=== PATIENT | female | born 1955 | race Caucasian/White ===

== ENCOUNTER 2017-04-29 14:20 | Inpatient (IN) | payer MEDICARE, BC ==
--- NOTE | ~2017-04-29 | HP ---
History And Physical [place] [id number] [facility] [place]. [address] NAME: SHAYY WRIGHT : 51 STATUS : ADM IN [facility]#: [id number] AGE: 61 ADM/REG DATE : 04/30/17 MR#: [id number] REPORT SERV DATE: 04/30/17 DICTATED BY: PAN RODRIGUEZ DATE: 04/30/17 REPORT STATUS : Draft TRANSCRIBED BY: MODL DATE: 04/30/17 DATE OF ADMISSION: 04/30/2017 CHIEF COMPLAINT: Abdominal pain and constipation. HISTORY OF PRESENT ILLNESS: This is a 61-year-old female who has a history of multiple sclerosis, who presents to the Emergency Room at [facility] with the above-mentioned complaint. History is obtained from the patient and reviewing data available on the Real Time Translation System. According to Ms. Wright, she had been in her usual state of health until a few days ago when she had trouble moving her bowels. She thought she was constipated and tried all OTC supplements that she could get. She started having abdominal pain and back pain and this became more intense and she decided to come to the emergency room to be evaluated. She also started having nausea and vomiting in the last 24 to 36 hours. She also admits to having some fever and chills during this time. In the emergency room, initial workup revealed she had a urinary tract infection, but more importantly, a CT scan of her abdomen and pelvis showed moderately severe left-sided hydronephrosis with stone in the ureteropelvic junction measuring 7 mm x 3 mm. The right side had stones as well, but they were nonobstructive. Importantly, there was no bowel obstruction. She had leukocytosis and met criteria for sepsis as well. Hospitalist Service was asked to admit her for further evaluation and treatment. At the time of my evaluation, she unfortunately had been treated with intravenous Dilaudid and was quite somnolent and groggy. However, she was able to answer some questions, but I think she was quite confused. She denied any chest pain, palpitations, or orthopnea. She denied any cough, hemoptysis, night sweats, or weight loss. She has not had any recent falls or loss of consciousness, did have some fever and chills as mentioned above. She did have nausea and vomiting bilious material. No hematemesis, hematochezia, or hematuria. No other history of recent travel or exposures other than those mentioned above. PAST MEDICAL HISTORY: Significant for history of multiple sclerosis. SOCIAL HISTORY: She has a prior history of tobacco use, but has not smoked in years. Does not use alcohol or recreational drugs. She is disabled at this time. FAMILY HISTORY: Noncontributory. MEDICATIONS: At home were reviewed by me in the chart today and reordered by me. REVIEW OF SYSTEMS: As in history of present illness. All other systems were reviewed and are quite unremarkable. PHYSICAL EXAMINATION: History And Physical [address] [address] NAME: SHAYY WRIGHT : 51 STATUS : ADM IN [facility]#: [id number] AGE: 61 ADM/REG DATE : 04/30/17 MR#: [id number] REPORT SERV DATE: 04/30/17 DICTATED BY: PAN RODRIGUEZ DATE: 04/30/17 REPORT STATUS : Draft TRANSCRIBED BY: ESTELA DATE: 04/30/17 GENERAL: This is a pleasant 61-year-old, not in any acute distress. She was alert and awake, but not oriented to time, place, or person. HEENT: Pupils are equal, reacting to light and accommodating. External ocular muscles are intact. NECK: Supple with no jugular venous distention, lymphadenopathy, or thyromegaly. LUNGS: Clear to auscultation with no wheezes, rubs, or crackles. HEART: Heart sounds were regular with no murmurs, rubs, or gallops. ABDOMEN: Distended and soft. There is tenderness to palpation diffusely. There is no rebound or guarding. Bowel sounds were diminished. EXTREMITIES: No cyanosis, clubbing, or edema. NEUROLOGIC: Grossly intact, although she was slightly confused secondary to her medications. She was able to move all four extremities. Speech was clear. She was able to answer some questions. There were no obvious deficits. VITAL SIGNS: Her vital signs today showed a temperature of 99.6 degrees Fahrenheit, pulse 119, respirations were 18 a minute, blood pressure was 155/72 upon arrival. Oxygen saturations were 96% breathing 4 L of oxygen via nasal cannula. LABORATORY DATA: Reviewed on the Real Time Translation System showed a normal CMP with a blood glucose of 109. Her alkaline phosphatase was 106, ALT was 24, AST 44, lipase was 81. Her BNP was 9.6. Lactate was 2.4. CBC showed a white blood cell count of 19,000, normal hemoglobin, hematocrit, and platelet count. Urinalysis showed hazy appearance, protein was 100, large blood greater than 182 rbc's, and occasional bacteria. CT scan of her abdomen and pelvis were reviewed by me on the PACS today. Official Radiology report was also reviewed. There is mcgbhzlt-tv-zuzplf left hydronephrosis with the stone in the ureteropelvic junction measuring 7 x 3 mm. There are nonobstructing stones in the right side as well. There was no bowel obstruction. A 12-lead EKG done in the emergency room was reviewed and interpreted by me. There is sinus tachycardia at a rate of [address] elevations. IMPRESSION: 1. Abdominal pain. 2. Severe hydronephrosis with stone in the ureteropelvic junction with possible obstructive uropathy. 3. Sepsis. 4. Leukocytosis. 5. Multiple sclerosis. PLAN: We will admit Ms. Wright to the Hospitalist Service with telemetry for close monitoring. After cultures are obtained, we will start her on empiric IV antibiotics. Dr. Read wanted gentamicin per the ER physician. We will keep her n.p.o., start her on fluids and pain control. Dr. Read will be consulted. I had spoken with him briefly. Meanwhile, we will place her on SCDs for DVT prophylaxis. We will continue home medications and treatments, but we will keep her n.p.o. for the most part. Please see today's orders for details. Further recommendations will follow after Dr. Read has had a chance to see her. I have discussed above plans with the patient. Questions were answered. She is agreeable to the above recommendations. History And Physical [address] [place]. [address] NAME: SHAYY WRIGHT : 51 STATUS : ADM IN [facility]#: [id number] AGE: 61 ADM/REG DATE : 04/30/17 MR#: [id number] REPORT SERV DATE: 04/30/17 DICTATED BY: PAN RODRIGUEZ DATE: 04/30/17 REPORT STATUS : Draft TRANSCRIBED BY: ESTELA DATE: 04/30/17 MR/MODL Pan Rodriguez M.D. / [id number] CC: Albert Reyna MD
--- NOTE | ~2017-04-29 | OP ---
Record Of Operation [facility] [address] [place]. [address] NAME: SHAYY WRIGHT : 51 STATUS : ADM IN PAT#: [id number] AGE: 61 ADM/REG DATE : 04/30/17 MR#: [id number] REPORT SERV DATE: 04/30/17 DICTATED BY: ERNIE HALE DATE: 04/30/17 REPORT STATUS : Draft TRANSCRIBED BY: MODDina DATE: 04/30/17 DATE OF PROCEDURE: PREOPERATIVE DIAGNOSIS: Left proximal ureteral calculus with obstruction, hydronephrosis, and pyelonephritis, and right renal pelvis calculus. POSTOPERATIVE DIAGNOSIS: Left proximal ureteral calculus with obstruction, hydronephrosis, and pyelonephritis, and right renal pelvis calculus. PROCEDURES: Cystoscopy, bilateral retrograde pyelography, and left ureteral stent placement. SURGEON: Ernie Hale M.D. ANESTHESIA: General. BLOOD LOSS: Less than 5 mL. FLUID REPLACEMENT: None. DRAINS: A 6-Colombian 26 cm double-J left ureteral stent with the strings removed and a 16- Colombian Hale catheter per urethra. INDICATION: Ms. Wright is a 61-year-old white female with multiple sclerosis, who presented to the emergency department with an obstructing stone in the left proximal ureter and a temperature of 99.3. She also has a stone in the right renal pelvis. FINDINGS: Dark urine from the left renal pelvis, right side, appeared to drain without any problem. TECHNIQUE: The patient was identified, brought to the operating room, administered general anesthetic agent by the Anesthesia Service, and intubated. She was positioned in dorsal lithotomy position. Vulva, groin, and introitus were prepped and draped in usual sterile fashion. A 22-Colombian cystoscopic sheath was placed in the bladder with an obturator. The obturator was removed and a 30-degree cystoscopic lens was inserted. The trigone and ureteral orifices are normal. The bladder has some small calcifications on the floor of the bladder. These are irrigated out. I cannulated the left ureteral orifice and performed left retrograde pyelogram. It shows a normal ureter up to the stone just proximal and then hydronephrosis above that. I advanced a 0.35 wire through the open-ended catheter and I passed the stone into the renal pelvis. I advanced the open-ended catheter over the wire into the renal pelvis, removed the wire, and then drained the urine out of the renal pelvis. This was collected and sent for culture. I then back filled it with diluted contrast material, reintroduced the wire through the open- ended catheter, removed the open-ended catheter, and deployed a 6-Colombian 26 cm double-J left ureteral stent. The string and the wire are removed. Record Of Operation [address] [place]. [address] NAME: SHAYY WRIGHT : 51 STATUS : ADM IN PAT#: [id number] AGE: 61 ADM/REG DATE : 04/30/17 MR#: [id number] REPORT SERV DATE: 04/30/17 DICTATED BY: ERNIE HALE DATE: 04/30/17 REPORT STATUS : Draft TRANSCRIBED BY: ESTELA DATE: 04/30/17 I performed a right retrograde pyelogram. It shows a normal course to the right ureter. There is a stone in the right renal pelvis. There is no hydronephrosis. I then watched the right side drain under fluoroscopy. Drains without obstruction. The bladder is then drained. A 16-Colombian Hale catheter is passed in the bladder and the procedure is terminated. PF/ESTELA Ernie Hale M.D. / [id number] CC: Albert Reyna MD
--- NOTE | ~2017-04-29 | DS ---
Discharge Summary [facility] [address] [place]. [address] NAME: SHAYY WRIGHT : 51 STATUS : DIS IN PAT#: [id number] AGE: 61 ADM/REG DATE : 04/30/17 MR#: [id number] REPORT SERV DATE: 05/03/17 DICTATED BY: ALBERT SANTIAGO DATE: 05/02/17 REPORT STATUS : Draft TRANSCRIBED BY: ESTELA DATE: 05/02/17 ADMISSION DATE: 04/30/2017 DISCHARGE DATE: 05/02/2017 DISCHARGE DIAGNOSES: 1. Sepsis. 2. Pyelonephritis. 3. Left hydronephrosis, left nephrolithiasis, status post left ureteral stent placement. 4. Multiple sclerosis. 5. Right renal pelvic calculus. 6. Constipation. 7. Hypothyroidism. 8. History of seizure disorder. CONSULTATIONS: 1. Urology, Dr. Read. 2. Infectious Disease, Dr. Ying. PROCEDURES PERFORMED DURING THIS ADMISSION: Cystoscopy, bilateral retrograde pyelography, and left ureteral stent placement. DISCHARGE CONDITION: Stable. IMAGING: CT scan of abdomen and pelvis, impression: 1. Ntenvjxn-wj-ajonaa left hydronephrosis associated with a 7 x 3 mm left ureteropelvic junction calculus. 2. Nonobstructing right nephrolithiasis. 3. Small bladder calculus. 4. Normal appendix, right upper pelvis. No bowel obstruction pattern. HISTORY OF PRESENT ILLNESS: For detailed HPI, please make reference to Dr. Cosme Perla's dictation on 04/30/2017. In brief, this is a 61-year-old female with medical history significant for multiple sclerosis, who presented to the emergency room at [facility] with complaints of abdominal pain and severe constipation. The patient reported associated nausea and vomiting 24 to 36 hours prior to presentation. She also reported some associated fever and chills during this time. In the ER, vital signs, temperature 99.6, pulse 119, respiratory rate 18, blood pressure 155/72. Physical exam was significant for abdominal distention with severe diffuse tenderness without rebound or guarding. Also noted was mild confusion. She was oriented x2. LABORATORY DATA: Lactate was 2.4 and WBC 19,000. Urinalysis showed hazy appearance with large leukocyte esterase. CT scan of the abdomen showed lbsmhlis-bp-dolopk left hydronephrosis with a stone in the ureteropelvic junction. An assessment of severe sepsis secondary to pyelonephritis (present on admission) severe left hydronephrosis due to obstructing stone in the ureteropelvic junction was made in the Discharge Summary [place] [address] [place]. [address] NAME: SHAYY WRIGHT : 51 STATUS : DIS IN PAT#: [id number] AGE: 61 ADM/REG DATE : 04/30/17 MR#: [id number] REPORT SERV DATE: 05/03/17 DICTATED BY: ALBERT SANTIAGO DATE: 05/02/17 REPORT STATUS : Draft TRANSCRIBED BY: ESTELA DATE: 05/02/17 ER. The patient was admitted to the Hospitalist Service. HOSPITAL COURSE: Severe sepsis secondary to left pyelonephritis. The patient's blood culture and urine cultures were taken in the ER. The patient was started on broad-spectrum IV antibiotics. The patient also received gentle IV fluid for resuscitation. The patient's lactate trended down. The patient's white blood cell gradually trended down. Urology was consulted. The patient was subsequently taken to the OR, where a left ureteral stent was placed to relieve the left hydronephrosis. The patient's white blood cell continued to trend down. Fortunately, the patient's urine culture yielded no growth. Blood culture also yielded no growth. Given the severity of the infection on presentation in the context of an immunosuppressed patient with multiple sclerosis and persistent stone, Infectious Disease was consulted to help determine duration of antibiotics as well as route of IV antibiotics. Infectious Disease was consulted for further recommendations. Given dramatic improvement to IV Rocephin, Infectious Disease concluded that the patient's infectious etiology will likely be due to gram negative. Hence, the patient can be transitioned from IV Rocephin to p.o. cefuroxime at the time of discharge. The patient was subsequently transitioned to cefuroxime 500 mg p.o. b.i.d. and advised to continue to follow up with primary care physician as well as Urology as an outpatient. Left hydronephrosis due to nephrolithiasis. The patient had a CT of the abdomen that confirms the presence of left oxismnzc-jz-jqvjcv hydronephrosis. The patient has a known history of renal stones. Urology was consulted in the ER. The patient subsequently underwent ureteral stent placement to relieve hydronephrosis. Urology recommended the patient to continue antibiotic therapy and will have an outpatient ureteroscopy for extraction as an outpatient. It was also noted that during this admission, the patient had urologic procedures as dictated above. Multiple sclerosis. No evidence of acute flare during the course of this admission. Seizure disorder. No seizure-like activities, during this admission. The patient was continued on home dose of Keppra 500 mg p.o. b.i.d. and levothyroxine. The patient's Synthroid was continued throughout the course of this admission. Constipation. CT of the abdomen showed no obstructing mass, but noted was evidence of severe constipation. The patient was given generous laxatives during the course of this admission. The patient had a bowel movement prior to discharge. The patient's TSH was essentially within normal limits. Hence, hypothyroidism was not contributing to the patient's constipation. The patient was advised to continue high fiber diet, liberal fluid intake, and oral laxative p.r.n. DISCHARGE DISPOSITION: Home. DISCHARGE MEDICATIONS: 1. Cefuroxime 500 mg p.o. b.i.d. 2. Wellbutrin 100 mg p.o. b.i.d. 3. Colace 100 mg p.o. b.i.d. p.r.n. 4. Keppra 500 mg p.o. b.i.d. Discharge Summary [address] [address] NAME: SHAYY WRIGHT : 51 STATUS : DIS IN PAT#: [id number] AGE: 61 ADM/REG DATE : 04/30/17 MR#: [id number] REPORT SERV DATE: 05/03/17 DICTATED BY: ALBERT SANTIAGO DATE: 05/02/17 REPORT STATUS : Draft TRANSCRIBED BY: ESTELA DATE: 05/02/17 5. Levothyroxine 75 mcg p.o. daily. 6. Multivitamins one tablet p.o. daily. DISCHARGE ACTIVITIES: As tolerated. DISCHARGE DIET: High fiber diet. DISCHARGE FOLLOWUP: Follow up with Urology within one week of discharge for possible ureteroscopy/ureteral stone retraction as an outpatient. Greater than 35 minutes was used to prepare this patient's discharge, reconcile medication, advise the patient on discharge plans and followup. DICTATED BY: MD LARISSA Mayes/ESTELA Albert Santiago MD / [id number] CC: MD Ernie Mayes M.D. Mani Ravee, M.D. Mark Anderson, M.D.
--- NOTE | ~2017-04-29 | CN ---
Consultation Report [facility] [address] [place]. [address] NAME: SHAYY WRIGHT : 51 STATUS : ADM IN [facility]#: [id number] AGE: 61 ADM/REG DATE : 04/30/17 MR#: [id number] REPORT SERV DATE: 05/02/17 DICTATED BY: AGUSTIN MENESES DATE: 05/02/17 REPORT STATUS : Draft TRANSCRIBED BY: MODL DATE: 05/02/17 INFECTIOUS DISEASE CONSULT DATE OF CONSULTATION: REASON FOR REFERRAL: Evaluation and treatment of pyelonephritis in an immunosuppressed patient. HISTORY OF PRESENT ILLNESS: The patient is a 61-year-old female with past medical history most notable for multiple sclerosis. She is managed for that using the monoclonal antibody product natalizumab. She prior to admission has had difficulty with constipation, was having abdominal pain, and few days prior to coming in, that grew worse, and was then accompanied by back pain, nausea, vomiting, fevers, and chills, and so she came to the emergency room on 04/29/2017. She had a temperature of 99, [place] [address]. Urine did only showed however a few white cells and trace leukocyte esterase, and because of that was not cultured. Imaging though showed her left hydronephrosis. Due to an obstructing stone in the ureteropelvic junction, Urology was urgently consulted. Dr. Read saw her. She went to surgery for cystoscopy and placement of a stent. Urine was cultured at that point, but by then she had received doses of Levaquin and gentamicin, and the cultures were negative. Blood cultures taken at admission prior to antibiotics have not grown. She was changed to Rocephin by 04/30/2017 and has been on that since and steadily improving. White blood cell count is normalized. Temperature is normal. She feels markedly better compared to when she came in. PAST MEDICAL HISTORY: Otherwise, unremarkable. MEDICATIONS: She is now on Rocephin as mentioned. ALLERGIES: SHE IS ALLERGIC TO PENICILLIN, WHICH CAUSES A RASH. SOCIAL HISTORY: She is , disabled, previously smoked, but not for several years, and has no history of alcohol or substance abuse. FAMILY HISTORY: Noncontributory. PHYSICAL EXAMINATION: GENERAL: A nontoxic adult female, in no acute distress. She is alert and oriented x3. VITAL SIGNS: Temperature is 97, pulse 70, respirations 20, blood pressure 123/64, weight 80 kg. HEENT: Sclerae clear. No oral lesions. NECK: Supple. LUNGS: Clear to auscultation. HEART: Regular rate and rhythm. Consultation Report [facility] [place]. [address] NAME: SHAYY WRIGHT : 51 STATUS : ADM IN [facility]#: [id number] AGE: 61 ADM/REG DATE : 04/30/17 MR#: [id number] REPORT SERV DATE: 05/02/17 DICTATED BY: AGUSTIN MENESES DATE: 05/02/17 REPORT STATUS : Draft TRANSCRIBED BY: MODDina DATE: 05/02/17 ABDOMEN: Soft, nontender. Positive bowel sounds. No masses or hepatosplenomegaly. No costovertebral angle tenderness. EXTREMITIES: Without clubbing, cyanosis, or edema. No swollen, red, or hot joints. No skin lesions or rashes. LABORATORY DATA: White blood cell count 19 when she came in, was down to 8.8 yesterday, today's is still pending, hematocrit 35.3, platelets 206. Her BUN and creatinine 9 and 0.36 yesterday, today's is pending. Procalcitonin on the day after admission was 0.09. IMPRESSION: Pyelonephritis due to a stone obstruction in an immunosuppressed patient. No cultures, because the infected urine was above the obstruction, and could not be accessed to culture until after she got antibiotics which was the case when the stent was placed. She is better with Rocephin, so I feel that we can assume it is likely a relatively sensitive gram-negative arlene. RECOMMENDATIONS: 1. I agree with the Rocephin, she is doing well on it, and we keep her on that as long she is here. 2. If she is ready to be discharged today, I feel we can transition to oral cefuroxime by 500 mg twice a day and give her at least ten days of that, perhaps longer depending on when she is going to have a procedure to deal with the stone. So, we will defer to Dr. Read regarding that. Finally, I will follow the patient with you. 3. I appreciate very much your consulting on this patient. NOEL/ESTELA Agustin Meneses M.D. / [id number] CC: MD Ernie Mayes M.D.
--- NOTE | ~2017-04-29 | CN ---
Consultation Report [facility] [address] [place]. [address] NAME: SHAYY WRIGHT : 51 STATUS : ADM IN PAT#: [id number] AGE: 61 ADM/REG DATE : 04/30/17 MR#: [id number] REPORT SERV DATE: 04/30/17 DICTATED BY: ERNIE HALE DATE: 04/30/17 REPORT STATUS : Draft TRANSCRIBED BY: MODL DATE: 04/30/17 CONSULTATION DATE OF CONSULTATION: 04/30/2017 This is consultation done for the hospitalist service. CHIEF COMPLAINT: Fever. REASON FOR CONSULTATION: Ureter obstructing stone. IMPRESSION: 1. A 7 mm left mid ureteral calculus causing obstruction associated with fever and suspected pyelonephritis. 2. Nonobstructing greater than 1 cm stone in the right renal pelvis. 3. Multiple sclerosis. 4. Impending sepsis. RECOMMENDATIONS: 1. Admission to the hospital service. 2. Urgent cystoscopy, bilateral retrograde pyelography, left ureteral stent placement, and possibly right ureteral stent placement. DISCUSSION: Ms. Wright is an unfortunate 61-year-old white female, who came to the emergency department with complaints of constipation. She has had multiple sclerosis for many years. In the emergency department, she was found to have an obstructing stone on the left side and a nonobstructing right renal calculus. She had a temperature of 99.1 but stable blood pressure and pulse. She has no history of urolithiasis. She is essentially immobile from her multiple sclerosis. She denies any aspiration, swallowing problems, or breathing difficulties. PHYSICAL EXAMINATION: GENERAL: Shows a well-developed, well-nourished white female, in mild distress and looks mildly toxic. She is awake and alert. VITAL SIGNS: Her last vital signs showed temperature 99.1, blood pressure was in approximately 120s over 80s systolic, her pulse was in the 90s. HEENT: Her sclerae are anicteric. Her pupils are pinpoint. She has been administered narcotics. She has slow movements, some dysarthric type speech. ABDOMEN: Soft. It is protuberant and distended. There is no guarding or rebound. Her flanks are subjectively tender on the left side, not on the right. EXTREMITIES: Lower extremities are somewhat contracted but show no edema. STUDIES: CT scan as described. Consultation Report [facility] [address] [place]. [address] NAME: SHAYY WRIGHT : 51 STATUS : ADM IN PAT#: [id number] AGE: 61 ADM/REG DATE : 04/30/17 MR#: [id number] REPORT SERV DATE: 04/30/17 DICTATED BY: ERNIE HALE DATE: 04/30/17 REPORT STATUS : Draft TRANSCRIBED BY: ESTELA DATE: 04/30/17 PF/ESTELA Ernie Hale M.D. / [id number] CC: Albert Reyna MD
[2017-04-29 14:56] LABS: BASOPHILS 0.4 %; BASOPHILS ABSOLUTE 0.07 10/3/uL (0.0-0.16); EOSINOPHILS 0.8 %; EOSINOPHILS ABSOLUTE 0.16 10/3/uL (0.0-0.53); ER CBC TAT 0 Hrs 11 Mins; HEMATOCRIT 45.7 % (36.0-48.0); HEMOGLOBIN 15.4 g/dL (12.0-16.0); IMMATURE GRANULOCYTES 0.4 %; IMMATURE GRANULOCYTES ABSOLUTE 0.07 10/3/uL (0.0-0.11); LYMPHOCYTES 18.6 %; LYMPHOCYTES ABSOLUTE 3.55 10/3/uL (0.67-4.30); MEAN CORPUS HGB CONC 33.7 g/dL (32.0-36.0); MEAN CORPUSCULAR HEMOGLOB 29.4 pg (26.0-34.0); MEAN CORPUSCULAR VOLUME 87.4 fL (80-100); MEAN PLATELET VOLUME 9.6 fL (9.2-13.0); MONOCYTES 13.2 %; MONOCYTES ABSOLUTE 2.51 10/3/uL (0.21-1.20); NEUTROPHILS 66.6 %; NEUTROPHILS ABSOLUTE 12.68 10/3/uL (2.02-8.40); NUCLEATED RED BLOOD CELLS 0.5 /100WBC (0-0); PLATELET COUNT 237 10/3/uL (150-400); RBC DISTRIBUTION WIDTH 14.7 % (12.0-16.0); RED CELL COUNT 5.23 10/6/uL (4.0-5.6)
[2017-04-29 14:57] LABS: MANUAL DIFF NO %
[2017-04-29 15:07] LABS: A/G RATIO 0.9 (0.7-1.9); ALBUMIN 3.6 G/DL (3.5-5.0); ALKALINE PHOSPHATASE 104 U/L (45-117); BUN (BLOOD UREA NITROGEN) 20 MG/DL (6-23); CALCIUM, SERUM 9.4 MG/DL (8.5-10.4); CHLORIDE, SERUM 107 MMOL/L (96-112); CO2 (CARBON DIOXIDE) 27 MMOL/L (24-34); GFR AFRICAN AMERICAN 91 ML/MIN (>=60); GFR NON AFRICAN AMERICAN 78 ML/MIN (>=60); GLUCOSE, SERUM 109 MG/DL (60-99); POTASSIUM, SERUM 3.9 MMOL/L (3.5-5.3); SGOT(AST) 18 U/L (5-40); SGPT(ALT) 20 U/L (5-65); SODIUM, SERUM 139 MMOL/L (135-148); TOTAL PROTEIN 7.6 G/DL (6.0-8.5)
[2017-04-29 18:45] LABS: WBC (NOT ORDERED) (RFLEX) 0 (0-5)
[2017-04-29 18:53] LABS: ASCORBIC ACID (UR NOT ORDER) NEG (NEG); BILIRUBIN, URINE NEGATIVE (NEG); ER URINALYSIS TAT 0 Hrs 09 Mins; KETONE, URINE 20 MG/DL (NEG); LEUKOCYTE ESTERASE(NOT OR TRACE (NEG); NITRITE (URINE) NEG (NEG)
[2017-04-29 21:13] LABS: ALBUMIN 3.7 G/DL (3.5-5.0); ALKALINE PHOSPHATASE 106 U/L (45-117); LACTATE 2.4 MMOL/L (0.3-2.4); SGPT(ALT) 24 U/L (5-65); TOTAL PROTEIN 8.3 G/DL (6.0-8.5)
[2017-04-29 21:14] LABS: DIRECT BILIRUBIN < 0.1 MG/DL (0.0-0.4); INDIRECT BILIRUBIN(NOT ORDER) 0.9 MG/DL (0.1-0.9); SGOT(AST) 44 U/L (5-40)
[2017-04-30] MEDS ORDERED: TYSABRI IV (00:03)
[2017-04-30] MEDS ORDERED: WELL100 PO (00:04)
[2017-04-30] MEDS ORDERED: SYN075 PO (00:04)
[2017-04-30] MEDS ORDERED: KEPPRA500 PO (00:05)
[2017-04-30] MEDS ORDERED: PROBIOTIC CAPSULE PO (00:05)
[2017-04-30] MEDS ORDERED: MULTIVITAMI1 PO (00:06)
[2017-04-30] MEDS ORDERED: DSS PO (00:06)
[2017-04-30 08:28] LABS: BASOPHILS 0.3 %; BASOPHILS ABSOLUTE 0.04 10/3/uL (0.0-0.16); EOSINOPHILS 0.8 %; EOSINOPHILS ABSOLUTE 0.12 10/3/uL (0.0-0.53); HEMATOCRIT 43.8 % (36.0-48.0); HEMOGLOBIN 14.3 g/dL (12.0-16.0); IMMATURE GRANULOCYTES 0.6 %; IMMATURE GRANULOCYTES ABSOLUTE 0.09 10/3/uL (0.0-0.11); LYMPHOCYTES 16.1 %; LYMPHOCYTES ABSOLUTE 2.35 10/3/uL (0.67-4.30); MEAN CORPUS HGB CONC 32.6 g/dL (32.0-36.0); MEAN CORPUSCULAR HEMOGLOB 29.2 pg (26.0-34.0); MEAN CORPUSCULAR VOLUME 89.4 fL (80-100); MEAN PLATELET VOLUME 9.7 fL (9.2-13.0); MONOCYTES 16.1 %; MONOCYTES ABSOLUTE 2.35 10/3/uL (0.21-1.20); NEUTROPHILS 66.1 %; NEUTROPHILS ABSOLUTE 9.65 10/3/uL (2.02-8.40); PLATELET COUNT 198 10/3/uL (150-400); RBC DISTRIBUTION WIDTH 14.7 % (12.0-16.0); WHITE BLOOD CELLS 14.6 10/3/uL (4.5-10.5)
[2017-04-30 08:29] LABS: MANUAL DIFF NO %
[2017-04-30 08:38] LABS: BUN (BLOOD UREA NITROGEN) 17 MG/DL (6-23); CHLORIDE, SERUM 106 MMOL/L (96-112); CO2 (CARBON DIOXIDE) 27 MMOL/L (24-34); CREATININE 0.65 MG/DL (0.55-1.02); GFR AFRICAN AMERICAN 110 ML/MIN (>=60); GFR NON AFRICAN AMERICAN 94 ML/MIN (>=60); GLUCOSE, SERUM 91 MG/DL (60-99); PHOSPHORUS, SERUM 2.3 MG/DL (2.5-4.5); POTASSIUM, SERUM 3.6 MMOL/L (3.5-5.3); SODIUM, SERUM 139 MMOL/L (135-148)
[2017-04-30 08:43] LABS: CALCIUM, SERUM 8.4 MG/DL (8.5-10.4)
[2017-04-30 14:23] LABS: PROCALCITONIN 0.09 ng/mL (<0.5)
[2017-05-01 06:21] LABS: BASOPHILS 0.3 %; BASOPHILS ABSOLUTE 0.03 10/3/uL (0.0-0.16); EOSINOPHILS 2.2 %; EOSINOPHILS ABSOLUTE 0.19 10/3/uL (0.0-0.53); HEMOGLOBIN 11.7 g/dL (12.0-16.0); IMMATURE GRANULOCYTES 0.8 %; IMMATURE GRANULOCYTES ABSOLUTE 0.07 10/3/uL (0.0-0.11); LYMPHOCYTES 28.3 %; LYMPHOCYTES ABSOLUTE 2.48 10/3/uL (0.67-4.30); MEAN CORPUS HGB CONC 33.1 g/dL (32.0-36.0); MEAN CORPUSCULAR HEMOGLOB 29.4 pg (26.0-34.0); MEAN CORPUSCULAR VOLUME 88.7 fL (80-100); MEAN PLATELET VOLUME 9.8 fL (9.2-13.0); MONOCYTES 12.5 %; MONOCYTES ABSOLUTE 1.09 10/3/uL (0.21-1.20); NEUTROPHILS 55.9 %; NEUTROPHILS ABSOLUTE 4.89 10/3/uL (2.02-8.40); PLATELET COUNT 206 10/3/uL (150-400); RBC DISTRIBUTION WIDTH 14.6 % (12.0-16.0); RED CELL COUNT 3.98 10/6/uL (4.0-5.6); WHITE BLOOD CELLS 8.8 10/3/uL (4.5-10.5)
[2017-05-01 06:22] LABS: HEMATOCRIT 35.3 % (36.0-48.0); MANUAL DIFF NO %
[2017-05-01 06:38] LABS: CALCIUM, SERUM 8.2 MG/DL (8.5-10.4); CHLORIDE, SERUM 112 MMOL/L (96-112); CO2 (CARBON DIOXIDE) 24 MMOL/L (24-34); CREATININE 0.36 MG/DL (0.55-1.02); GFR AFRICAN AMERICAN 133 ML/MIN (>=60); GFR NON AFRICAN AMERICAN 115 ML/MIN (>=60); POTASSIUM, SERUM 3.6 MMOL/L (3.5-5.3); SGOT(AST) 11 U/L (5-40); SGPT(ALT) 16 U/L (5-65); SODIUM, SERUM 142 MMOL/L (135-148)
[2017-05-01 06:40] LABS: A/G RATIO 0.7 (0.7-1.9); ALBUMIN 2.3 G/DL (3.5-5.0); ALKALINE PHOSPHATASE 68 U/L (45-117); BUN (BLOOD UREA NITROGEN) 9 MG/DL (6-23); GLOBULIN 3.2 G/DL (2.5-4.1); GLUCOSE, SERUM 112 MG/DL (60-99); TOTAL BILIRUBIN 0.4 MG/DL (0-1.2); TOTAL PROTEIN 5.5 G/DL (6.0-8.5)
[2017-05-02 08:10] LABS: BASOPHILS 0.9 %; BASOPHILS ABSOLUTE 0.06 10/3/uL (0.0-0.16); EOSINOPHILS 3.2 %; EOSINOPHILS ABSOLUTE 0.22 10/3/uL (0.0-0.53); HEMATOCRIT 36.3 % (36.0-48.0); IMMATURE GRANULOCYTES 0.9 %; IMMATURE GRANULOCYTES ABSOLUTE 0.06 10/3/uL (0.0-0.11); LYMPHOCYTES 30.7 %; LYMPHOCYTES ABSOLUTE 2.11 10/3/uL (0.67-4.30); MANUAL DIFF NO %; MEAN CORPUS HGB CONC 33.1 g/dL (32.0-36.0); MEAN CORPUSCULAR VOLUME 87.7 fL (80-100); MEAN PLATELET VOLUME 9.6 fL (9.2-13.0); MONOCYTES 10.8 %; MONOCYTES ABSOLUTE 0.74 10/3/uL (0.21-1.20); NEUTROPHILS 53.5 %; NEUTROPHILS ABSOLUTE 3.69 10/3/uL (2.02-8.40); NUCLEATED RED BLOOD CELLS 0.9 /100WBC (0-0); PLATELET COUNT 200 10/3/uL (150-400); RBC DISTRIBUTION WIDTH 14.4 % (12.0-16.0); RED CELL COUNT 4.14 10/6/uL (4.0-5.6); WHITE BLOOD CELLS 6.9 10/3/uL (4.5-10.5)
[2017-05-02 08:21] LABS: BUN (BLOOD UREA NITROGEN) 5 MG/DL (6-23); CALCIUM, SERUM 8.4 MG/DL (8.5-10.4); CHLORIDE, SERUM 109 MMOL/L (96-112); CO2 (CARBON DIOXIDE) 28 MMOL/L (24-34); CREATININE 0.33 MG/DL (0.55-1.02); GFR AFRICAN AMERICAN 137 ML/MIN (>=60); GFR NON AFRICAN AMERICAN 118 ML/MIN (>=60); GLUCOSE, SERUM 116 MG/DL (60-99); PHOSPHORUS, SERUM 3.2 MG/DL (2.5-4.5); POTASSIUM, SERUM 3.2 MMOL/L (3.5-5.3); SODIUM, SERUM 146 MMOL/L (135-148)
[2017-05-02] MEDS ORDERED: CEFT5 PO (14:12)
[2017-05-02] MEDS ORDERED: SENTAB PO (14:13)
[2017-05-02] MEDS ORDERED: DSS PO (14:13)
[2017-05-20] MEDS ORDERED: NORCO1 TA1 PO (10:25)
[2017-05-20] MEDS ORDERED: MEDS (10:55)
== END 2017-05-02 16:13 | disposition home or self-care (01) | DRG 872 ==
LOC: ER 14:20 → SDC 04-30 01:44 → 1SO 04-30 03:01
PROVIDERS: Emergency Medicine; Hospitalist; Urology
PROC: BT141ZZ Fluoroscopy of Kidneys, Ureters and Bladder using Low Osmolar Contrast (ICD-10-PCS; 2017-04-30)
PROC: 0T778DZ Dilation of Left Ureter with Intraluminal Device, Via Natural or Artificial Opening Endoscopic (ICD-10-PCS; principal; 2017-04-30 03:15)
DX: A41.9 Sepsis, unspecified organism (principal); N13.6 Pyonephrosis; N39.0 Urinary tract infection, site not specified; G35 Multiple sclerosis; R65.20 Severe sepsis without septic shock; K59.00 Constipation, unspecified; N21.0 Calculus in bladder; E03.9 Hypothyroidism, unspecified; G40.909 Epilepsy, unspecified, not intractable, without status epilepticus; Z87.891 Personal history of nicotine dependence; Z87.442 Personal history of urinary calculi; Z79.899 Other long term (current) drug therapy; Z88.0 Allergy status to penicillin
CPT/HCPCS: 74000; 74176; 74420; 80048; 80053; 80076; 81001; 83605; 83690; 83735; 83880; 84100; 84145; 84439; 84443; 85025; 87040; 87086; 93005; 96365; 96375; 99291; A9270-GY; C1758; C2617; J0330; J1170; J1580; J1956; J2405; J2710; Q9967